=== PATIENT | male | born 1995 | race Two or more races ===

== ENCOUNTER 2018-09-18 12:18 | Emergency (ER) | payer OTHER ==
[~2018-09-18] VITALS: Ht 185.4 cm; Wt 124.7 kg
== END 2018-09-18 15:37 | disposition home or self-care (01) ==
LOC: ER 12:18
DX: B34.9 Viral infection, unspecified (principal)

== ENCOUNTER 2019-05-27 22:44 | Emergency (ER) | payer OTHER ==
[~2019-05-27] VITALS: Ht 188 cm; Wt 117.9 kg
== END 2019-05-28 04:30 | disposition home or self-care (01) ==
LOC: ER 22:44
DX: K52.89 Other specified noninfective gastroenteritis and colitis (principal); B34.9 Viral infection, unspecified; R11.2 Nausea with vomiting, unspecified